=== PATIENT | male | born 1960 | race Two or more races ===

== ENCOUNTER 2018-11-20 17:20 | Inpatient (IN) | payer MEDICAID ==
[~2018-11-20] VITALS: Ht 152.4 cm; Wt 39.0 kg
[2018-11-20] MEDS ORDERED: ACET-73 PO (17:56)
[2018-11-20] MEDS ORDERED: AMMO385C4 TP (17:56)
[2018-11-20] MEDS ORDERED: TRAZ-182 PO (17:56)
[2018-11-20] MEDS ORDERED: CHOL200026 PO (17:56)
[2018-11-20] MEDS ORDERED: ACET1TAB23 PO (17:56)
[2018-11-20] MEDS ORDERED: ESCI5TAB PO (17:56)
[2018-11-20] MEDS ORDERED: LACT1CAP61 PO (17:56)
[2018-11-20] MEDS ORDERED: SILV20CR13 TP (17:56)
[2018-11-20 18:13] LABS: BASOPHILS # (AUTO) 0.1 /CMM (0.0-0.2); BASOPHILS % (AUTO) 0.9 % (0.0-2.0); EOSINOPHILS % (AUTO) 1.9 % (0.0-6.0); HEMATOCRIT 43 % (39-51); HEMOGLOBIN 14.3 g/dL (13.5-17.5); LYMPHOCYTES # (AUTO) 1.7 /CMM (0.8-4.8); LYMPHOCYTES % (AUTO) 26.1 % (20.0-44.0); MEAN CORPUSCULAR HGB CONC 34 g/dl (31.0-36.0); MEAN CORPUSCULAR VOLUME 83 fL (80-96); MONOCYTES # (AUTO) 0.6 /CMM (0.1-1.30); MONOCYTES % (AUTO) 8.7 % (2.0-12.0); NEUTROPHILS % (AUTO) 62.4 % (43.0-81.0); PLATELET COUNT (AUTO) 258 /CMM (150-450); RED BLOOD CELL COUNT(AUTO) 5.11 MIL/uL (4.5-6.0); WHITE BLOOD COUNT (AUTO) 6.4 K/uL (4.3-11.0)
--- NOTE | 2018-11-20 18:15 | NUR ---
patient NORA from snf, currently on PO ATB for UTI but patient is non-compliant on meds. Came in due to increase confusion and non compliant on meds. On room air, breathing evenly and unlabored. Denies any pain at this time. Kept comfortable, will continue to monitor accordingly.
[2018-11-20 18:19] LABS: CALCIUM, SERUM 8.8 mg/dL (8.5-10.1); CARBON DIOXIDE 25 mmol/L (21-32); CHLORIDE 105 mmol/L (98-107); CREATININE 0.6 mg/dL (0.6-1.3); GLUCOSE 92 mg/dL (74-106); POTASSIUM 3.8 mmol/L (3.5-5.1); SODIUM SERUM 140 mmol/L (136-145); UREA NITROGEN, BLOOD 19 mg/dL (7-18)
[2018-11-20 18:25] LABS: ALANINE AMINOTRANSFERASE 20 U/L (12-78); ALCOHOL, BLOOD < 3 mg/dL (0-0); ALKALINE PHOSPHATASE 101 U/L (46-116); ASPARTATE AMINOTRANSFERASE 21 U/L (15-37); BILIRUBIN,DIRECT 0.1 mg/dL (0.0-0.2); BILIRUBIN,TOTAL 0.4 mg/dL (0.2-1.0); SALICYLATE < 2.8 mg/dL (2.8-20.0); TOTAL PROTEIN, SERUM 7.8 g/dL (6.4-8.2)
[2018-11-20 18:30] LABS: BILIRUBIN,URINE Negative (NEGATIVE); BLOOD, URINE Negative Ery/uL (NEGATIVE); COLOR,URINE Yellow (YELLOW); KETONES,URINE 15 (NEGATIVE); LEUKOCYTE ESTERASE ,URINE Negative (NEGATIVE); NITRITE, URINE Positive (NEGATIVE); PROTEIN,URINE 30 mg/dl (NEGATIVE); UGLUCOSE Negative (NEGATIVE)
[2018-11-20 18:31] LABS: PH,URINE >9.0 (5.0-8.0)
[2018-11-20 18:42] LABS: APPEARANCE,URINE HAZY (CLEAR); BACTERIA,URINE Few /HPF (None Seen); RBC,URINE 0-2 /HPF (0-2); SQUAMOUS EPITHELIAL CELL,UR None Seen /HPF (None Seen); URINE AMORPHOUS PHOSPHATES Moderate /HPF (None Seen); WBC,URINE 0-2 /HPF (0-3)
--- NOTE | 2018-11-20 19:20 | NUR ---
endorsed to nurse SAVAGE for cesar.
--- NOTE | 2018-11-20 19:22 | NUR ---
REPORT REC'D FROM KAN CANTU FOR JEANIE.
--- NOTE | 2018-11-20 19:59 | NUR ---
CALLED [facility] FOR BED
--- NOTE | 2018-11-20 20:00 | NUR ---
PT HAS LARGE WOUND ON SACRAL AREA.
--- NOTE | 2018-11-20 20:00 | NUR ---
PT HAS A COLOSTOMY AND A CONDOM CATH RANDALL.
--- NOTE | 2018-11-20 20:01 | NUR ---
PT WAS CLEANED AND PT WAS ASSISTED WITH PUTTING ON A LEG BAG. PT WAS GIVEN NEW PANTS AND CLEAN SHEETS. PT'S LEG BAG LEAKED.
--- NOTE | 2018-11-20 20:15 | NUR ---
PT'S BROTHER, DANIEL COLEMAN, CALLED FOR AN UPDATE. DANIEL CAN BE REACHED AT
--- NOTE | 2018-11-20 20:57 | NUR ---
PT IS GOING TO 306-2
[2018-11-20] MEDS ORDERED: TRAZODONE 50 MG TABLET PO PRN (21:00)
--- NOTE | 2018-11-20 21:06 | NUR ---
CALLING REPORT TO MS NURSE.
--- NOTE | 2018-11-20 21:06 | NUR ---
PT IS GOING TO 310-1, PER VIDYA HARMON.
--- NOTE | 2018-11-20 21:07 | NUR ---
CALLING REPORT TO KAN GREEN.
--- NOTE | 2018-11-20 21:22 | NUR ---
MS/RN NOTES RECEIVED PT. FROM ER VIA LEANNA. PT. IS AWAKE, ALERT AND ORIENTED X2-3. KAZAKH SPEAKING. BREATHING EVEN AND UNLABORED ON ROOM AIR. NO SOB, RESPIRATORY DISTRESS OR COMPLAINTS OF PAIN NOTED AT THIS TIME. ORIENTED PT. TO ROOM. PT. WITH CONDOM CATHETER PRESENT, PATENT AND INTACT DRAINING CLOUDY YELLOW URINE. PT. WITH COLOSTOMY PRESENT AND INTACT. BED LOCKED AND IN LOWEST POSITION, SIDE RAILS UP X3, BED ALARM ON, CALL LIGHT WITHIN REACH, WILL CONTINUE TO MONITOR.
[2018-11-20] MEDS ORDERED: HYDROCODONE/APAP 5/325MG 1 EACH TABLET PO PRN (21:30)
[2018-11-20] MEDS ORDERED: Z GUARD REMEDY 2 OZ OINT TP PRN (21:30)
[2018-11-20] MEDS ORDERED: MAG HYDROX/AL HYDROX/SIMETH 30 ML UDC PO PRN (21:30)
[2018-11-20] MEDS ORDERED: DIPHENOXYLATE HCL/ATROP SULF 1 UDTAB TABLET PO PRN (21:30)
[2018-11-20] MEDS ORDERED: ONDANSETRON HCL/PF 4 MG/2 ML VIAL IVP PRN (21:30)
[2018-11-20] MEDS ORDERED: ZOLPIDEM TARTRATE 5 MG TABLET PO PRN (21:30)
[2018-11-20] MEDS ORDERED: MORPHINE SULFATE INJ 2 MG/ML DISP.SYRIN IV PRN (21:30)
[2018-11-20] MEDS ORDERED: ACETAMINOPHEN 325 MG TABLET PO PRN (21:30)
[2018-11-20] MEDS ORDERED: MAGNESIUM HYDROXIDE 30 ML UDC PO PRN (21:30)
[2018-11-20 21:40] VITALS: BP 140/83
[2018-11-20] MEDS ORDERED: CEFTRIAXONE 1 G VIAL ONE (23:19)
[2018-11-20] MEDS: CEFTRIAXONE 1 G in IV D5W 50 ML IV SCH (23:33)
[2018-11-20] MEDS: IV NS 0.9% 1,000 ML IV PRN (23:34)
[2018-11-20] MEDS: ENOXAPARIN SODIUM 40 MG/0.4 ML DISP.SYRIN SQ SCH (23:35)
--- NOTE | 2018-11-21 06:52 | NUR ---
MS/RN NOTES PT. IS LYING IN BED, AWAKE, ALERT AND ORIENTED X 2-3. BREATHING EVEN AND UNLABORED ON ROOM AIR. NO SOB, RESPIRATORY DISTRESS OR COMPLAINTS OF PAIN NOTED AT THIS TIME. PT. WITH RIGHT FOREARM 22 GAUGE PERIPHERAL IV PRESENT, PATENT AND INTACT ADMINISTERING TO PT. NS @ 75 ML/HR. PT. WITH CONDOM CATHETER PRESENT, PATENT AND INTACT DRAINING CLOUDY YELLOW URINE. PT. WITH COLOSTOMY PRESENT AND INTACT. ALL PT. NEEDS MET. PT. OFFLOADED AND ENCOURAGED/ASSISTED TO TURN AND REPOSITION Q2H AND NEEDED. BED LOCKED AND IN LOWEST POSITION, SIDE RAILS UP X3, BED ALARM ON, CALL LIGHT WITHIN REACH, WILL ENDORSE TO DAYSWAFT NURSE FOR CONTINUITY OF CARE.
[2018-11-21 06:57] LABS: BASOPHILS # (AUTO) 0.1 /CMM (0.0-0.2); BASOPHILS % (AUTO) 1.2 % (0.0-2.0); EOSINOPHILS % (AUTO) 2.9 % (0.0-6.0); HEMATOCRIT 42 % (39-51); HEMOGLOBIN 13.8 g/dL (13.5-17.5); LYMPHOCYTES # (AUTO) 1.2 /CMM (0.8-4.8); LYMPHOCYTES % (AUTO) 22.9 % (20.0-44.0); MEAN CORPUSCULAR HGB CONC 33 g/dl (31.0-36.0); MEAN CORPUSCULAR VOLUME 84 fL (80-96); MONOCYTES # (AUTO) 0.4 /CMM (0.1-1.30); NEUTROPHILS # (AUTO) 3.5 /CMM (1.8-8.9); PLATELET COUNT (AUTO) 226 /CMM (150-450); WHITE BLOOD COUNT (AUTO) 5.4 K/uL (4.3-11.0)
[2018-11-21 07:23] LABS: ALBUMIN 2.7 g/dL (3.4-5.0); BILIRUBIN,TOTAL 0.3 mg/dL (0.2-1.0); CALCIUM, SERUM 8.5 mg/dL (8.5-10.1); CREATININE 0.5 mg/dL (0.6-1.3); PHOSPHORUS 3.5 mg/dL (2.5-4.9); POTASSIUM 3.5 mmol/L (3.5-5.1); TOTAL PROTEIN, SERUM 7.1 g/dL (6.4-8.2)
--- NOTE | 2018-11-21 07:30 | NUR ---
m/s after school tutor: initial assessment received pt in bed awake, a/ox2-3; french speaking only. pt asked for egg salad sandwich. informed pt breakfast tray is on the way. no c/o pain or any discomfort. pt has colostomy and condom cath. instructed to call for assistance. will continue to monitor.
[2018-11-21 08:00] VITALS: BP 127/72
--- NOTE | 2018-11-21 08:00 | NUR ---
m/s controls technician: md visit seen and examined by dr. mckenna with new orders. orders acknowledged. for d'c planning in 1-2 days, pt verbalized understanding.
[2018-11-21] MEDS: PANTOPRAZOLE 40 MG TABLET.DR PO SCH (08:28)
[2018-11-21] MEDS: ACIDOPHILUS/BULGARICUS 1 EACH TAB.CHEW PO SCH ×2 (08:28→16:33)
[2018-11-21] MEDS: CHOLECALCIFEROL 1,000 UNIT TABLET (VIT D3) PO SCH (08:28)
[2018-11-21] MEDS: ESCITALOPRAM OXALATE (10 MG) 10 MG TABLET PO SCH (08:28)
[2018-11-21] MEDS: AMMONIUM LACTATE 227 GM BOTTLE TP SCH (09:00)
--- NOTE | 2018-11-21 09:00 | NUR ---
m/s oil well engineer: notes lac-hydrin cream not available at this time, f/u made to pharmacist, spoke to blu.
--- NOTE | 2018-11-21 09:30 | NUR ---
m/s chip washer: notes request for egg salad sandwich once more and provided. instructed to call for assistance. will continue to monitor.
--- NOTE | 2018-11-21 10:25 | NUR ---
WOUND CARE CONSULT: PT PRESENTS WITH SCARRING TO RT BUTTOCK AND SACRUM WITH STAGE 3 ULCER TO LEFT BUTTOCK, PRESENT ON ADMISSION. RECOMMEND SURGICAL CONSULT. DR BIRMINGHAM NOTIFIED OF CONSULT REQUEST. RECOMMENDATIONS MADE FOR SKIN PROTECTION. DISCUSSED WITH NURSING STAFF. LOW AIRLOSS BED TO BE PLACED (ISOFLEX). WILL SEE PRN. CURRENT HUNTER SCORE IS 13. MD IN AGREEMENT WITH PLAN OF CARE. Addendum: 11/21/18 at 1026 by ADAM WHALEN WNDNU Amended: Links added.
--- NOTE | 2018-11-21 12:00 | NUR ---
m/s basket hand weaver: psych consult seen by dr. mcdowell at this time. for possible d'c planning to geropsych unit when pt is medically stable.
--- NOTE | 2018-11-21 13:00 | NUR ---
m/s care management coordinator: notes dr. mcdowell (psychiatrist) called and informed me that pt [facility] not [facility], but instead will look for placement per intake as stated by dr. mcdowell.
--- NOTE | 2018-11-21 13:30 | NUR ---
m/s parachutist/combatant diver qualified: notes nephew visiting at this time.
--- NOTE | 2018-11-21 15:00 | NUR ---
m/s street light repairer: notes pt called his brother and handed the phone to the staff. brother upset about him calling him often and says pt is very delusional when he is on the phone with him. pt denies any auditory/visual hallucinations at this time. denies si/hi at this time. brother to come at 1700 as stated. will continue to monitor.
[2018-11-21 16:00] VITALS: BP 132/77
[2018-11-21] MEDS: IV NS 0.9% 1,000 ML IV PRN (16:01)
--- NOTE | 2018-11-21 16:55 | NUR ---
m/s manganese heater: plastic surgeon consult seen and examined by dr. josue at this time.
--- NOTE | 2018-11-21 18:00 | NUR ---
m/s transmission system operator: notes sally (brother) here visiting and concerns about his delusional state when he is at home, pt keeps calling other families outside [place] and keeps bothering them as stated. brother refused to talk to staff privately and wants his brother to hear all his and family's concerns. informed him that psychiatrist is on board and pt has no delusional or hallucinations on shift, stated, "he looks good now, but what about when he gets home, they are just going to send him back to the hospital." all concerns and questions answered. pt denies any si/hi and denies auditory/visual hallucinations at this time. encouraged to verbalized feelings. brother wants to talk to the doctor and psychiatrist so he can verbalized he and his family's concerns before he gets discharge, as of now he looks great but that's another story as stated. will continue to monitor and will endorsed accordingly.
--- NOTE | 2018-11-21 19:23 | NUR ---
MS/RN OPENING NOTES RECEIVED PATIENT IN BED WITH BROTHER, AWAKE, ALERT, PARAPHLEGIC, ABLE TO VERBALIZE NEEDS IN [place] CAN UNDERSTAND LITTLE ENFLISH, DISCUSSED PLAN OF CARE AND REPORTED WITH LITTLE APPETITE, OFFERED SOME JELLO, ABLE TO EAT FEW BITES, SKIN WARM TO TOUCH, RESPIRATIONS EVEN AND UNLABORED, CAN TURN WITH ASSISTANCE, REQUIRE ASSISTANCE M WITH COLOSTOMY AND CONDOM CATHETER DRAINING YELLOW COLOR URINE. WILL MONITOR. BED LOCKED, CALL LIGHTS WITHIN REACH, WILL MONITOR.REQUIRE SKIN TREATMENT ON SACRAL AREA.
[2018-11-21 20:00] VITALS: BP 144/76
[2018-11-21] MEDS: ENOXAPARIN SODIUM 40 MG/0.4 ML DISP.SYRIN SQ SCH (20:06)
[2018-11-21] MEDS: CEFTRIAXONE 1 G in IV D5W 50 ML IV SCH (20:06)
--- NOTE | 2018-11-21 21:40 | NUR ---
MS/RN NOTES PATIENT EXHIBITING AGGRESSIVE BEHAVIOR M BEHAVIOR CHANGE, AWAKEN FRO SLEEP AND WITH AGITATION AND SHOUTING, ATTEMPT AND MAKING A FIST, AND HOLDING BED ALRM . MD PAEZ MADE AWARE AND ORDER FOR A SITTER , OTHERQISE RESTRAINT FOR SAFETY, WILL MONITOR.
--- NOTE | 2018-11-21 21:59 | NUR ---
MS/RN NOTES PATIENT SHOUTING, AGGRESIVE, FOUL LANGUAGE, BROTHER DANIEL WAS CONTACTED AND SPOKE WITH HIM REGARDING PATIENT CHANGE OF BEHAVIOR EXHIBITING DANGER TO SELF AND OTHERS REQUIRE PSYCH CONSULT, AWAITING .
--- NOTE | 2018-11-21 22:11 | NUR ---
MS/RN NOTES PATIENT ONGOING BEHAVIOR OF ACUTE EPISODE, VERBALLY ABUSIVE, FOUL LANGUAGE.MONITORED.
--- NOTE | 2018-11-21 22:17 | NUR ---
REFUSED CARE OF WOUND TREATMENT AT THIS TIME, UNABLE TO PROVIDE CARE PATIENT COMBATIVE, REQUIRE MONITORING PER MD.
--- NOTE | 2018-11-22 06:21 | NUR ---
310-1 MS/RN NOTES MONITORED FOR SAFETY, ACUTE CHANGE OF BEHAVIOR WHEN AWOKEN FROM SLEEP, ON RESTRAINTSOFT DUE TO COMBATIVE/AGGRESSIVE AWAITING FOR PSYCH CONSULT AND ORDER, EXHIBITING ACUTE BEHAVIOR
[2018-11-22] MEDS: PANTOPRAZOLE 40 MG TABLET.DR PO SCH (07:30)
--- NOTE | 2018-11-22 07:39 | NUR ---
RN OPENING NOTE PT WAS RECEIVED IN BED AT LOWEST AND LOCKED POSITION WITH SIDE RAILS UP X2, A/O X2-3 TELUGU SPEAKING COMBATIVE AND NON-COMPLIANT, BREATHING EVEN AND UNLABORED ON RA, NO S/S OF ANY PAIN OR DISTRESS AT THIS TIME, IV IS PATENT AND INTACT, SITTER PRESENT AT BEDSIDE, CONDOM CATH IN PLACE, NOTED TO HAVE COLOSTOMY BAG, SAFETY PRECAUTIONS IN PLACE, CALL LIGHT WITHIN REACH, WILL MONITOR PT ACCORDINGLY.
[2018-11-22] MEDS: HYDROGEL DRESSING 90 GM TUBE TP SCH (08:49)
[2018-11-22] MEDS: ACIDOPHILUS/BULGARICUS 1 EACH TAB.CHEW PO SCH ×2 (08:52→16:48)
[2018-11-22] MEDS: ESCITALOPRAM OXALATE (10 MG) 10 MG TABLET PO SCH (08:52)
[2018-11-22] MEDS: CHOLECALCIFEROL 1,000 UNIT TABLET (VIT D3) PO SCH (08:53)
[2018-11-22] MEDS: Z GUARD REMEDY 2 OZ OINT TP SCH (08:53)
[2018-11-22] MEDS: AMMONIUM LACTATE 227 GM BOTTLE TP SCH (08:53)
--- NOTE | 2018-11-22 08:54 | NUR ---
RN NOTE ATTEMPTED TO ADMIN PATIENT AM PO MEDICATIONS BUT PT REFUSED MEDS STATING IT GIVES HIM DIARRHEA. HE WAS INFORMED AND EDUCATED ABOUT THEIR PURPOSE AND THAT THEY WOULD NOT GIVE HIM DIARRHEA. HE HOWEVER STILL REFUSED AND DID NOT WANT TO TAKE THEM.
--- NOTE | 2018-11-22 13:42 | NUR ---
RN NOTE VERBAL ORDER RECEIVED FROM DR. HENDRIX TO GIVE DEPACON TID 125 MG IV. WILL IMPLEMENT ORDER AND MONITOR ACCORDINGLY.
[2018-11-22] MEDS: NS 0.9% IV SCH (17:47)
[2018-11-22] MEDS: VALPROATE IV SCH (17:47)
--- NOTE | 2018-11-22 18:05 | NUR ---
RN NOTE RFA IV WAS REMOVED DUE TO INFILTRATION, NEW ONE PLACE IN ART GAUGE 22 AT THIS TIME
--- NOTE | 2018-11-22 18:40 | NUR ---
RN CLOSING NOTE PT IN BED AT LOWEST AND LOCKED POSITION WITH SIDE RAILS UP X2, A/O X2-3 PUERTO RICAN SPEAKING BREATHING EVEN AND UNLABORED ON RA WITH NO S/S OF ANY PAIN OR DISTRESS AT THIS TIME, IV IS PATENT AND INTACT WITH DEPACON CURRENTLY INFUSING, SITTER PRESENT AT BEDSIDE, CONDOM CATH IN PLACE, COLOSTOMY BAG IN PLACE, SAFETY PRECAUTIONS IN PLACE, CALL LIGHT WITHIN REACH, ALL NEEDS ATTENDED TO, WILL ENDORSE TO ONCOMING NET SOFTWARE DEVELOPER RN FOR JEANIE.
--- NOTE | 2018-11-22 19:54 | NUR ---
MS/RN OPENING NOTES RECEIVED PATIENT IN BED, AWAKE, ALERT XQ, WITH BEHAVIOR PRESSER AND SHAPER KNITTED GOODS REQUIRE SAFETY MONITORING WITH PSYCH MEDICATION GIVEN TODAY PER CONSULT, WILL MONITOR BEHAVIOR. REQUIRE SITTER, OFFERED FLUIDS. KEPT SKIN WARM AND INTACT, REQUIRE REPOSITIONING AND SKIN TREATMENT.
[2018-11-22 20:00] VITALS: BP 147/98
[2018-11-22] MEDS: ENOXAPARIN SODIUM 40 MG/0.4 ML DISP.SYRIN SQ SCH (21:07)
[2018-11-22] MEDS: CEFTRIAXONE 1 G in IV D5W 50 ML IV SCH (21:09)
[2018-11-23] MEDS: IV NS 0.9% 1,000 ML IV PRN ×2 (02:31→22:45)
--- NOTE | 2018-11-23 06:06 | NUR ---
MS/RN NOTES PATIENT ABLE TO PARTICIPATE WITH MORNING CARE, ASSITED FOR COMFORT.
--- NOTE | 2018-11-23 07:15 | NUR ---
RN OPENING NOTE PT WAS RECEIVED IN BED AT LOWEST AND LOCKED POSITION WITH SIDE RAILS UP X2, A/O X2-3 KYRGYZ SPEAKING, BREATHING EVEN AND UNLABORED ON RA, NO S/S OF ANY PAIN OR DISTRESS AT THIS TIME, IV IS PATENT AND INTACT, CONDOM CATH IN PLACE, NOTED TO HAVE COLOSTOMY BAG, INFORMED BY SALT REFINER RN THAT PATIENT WAS COOPERATIVE AND DID EAT 2 SANDWICHES, SAFETY PRECAUTIONS IN PLACE, CALL LIGHT WITHIN REACH, WILL MONITOR PT ACCORDINGLY.
[2018-11-23] MEDS: PANTOPRAZOLE 40 MG TABLET.DR PO SCH (07:30)
[2018-11-23 08:00] VITALS: BP 129/78
[2018-11-23] MEDS: ACIDOPHILUS/BULGARICUS 1 EACH TAB.CHEW PO SCH ×2 (08:13→17:00)
[2018-11-23] MEDS: ESCITALOPRAM OXALATE (10 MG) 10 MG TABLET PO SCH (08:13)
[2018-11-23] MEDS: CHOLECALCIFEROL 1,000 UNIT TABLET (VIT D3) PO SCH (08:14)
[2018-11-23] MEDS: AMMONIUM LACTATE 227 GM BOTTLE TP SCH (08:15)
[2018-11-23] MEDS: Z GUARD REMEDY 2 OZ OINT TP SCH (08:16)
--- NOTE | 2018-11-23 08:20 | NUR ---
RN NOTE PT REFUSED AM PO MEDICATIONS AT THIS TIME, INFORMED AND EDUCATED AGAIN TO WHY HE SHOULD TAKE THEM BUT HE STILL REFUSED. HE HOWEVER DID EAT ALL OF HIS BREAKFAST. WILL MONITOR PT ACCORDINGLY. Addendum: 11/23/18 at 1447 by FRANCIS JOSE RN DISREGARD THIS NOTE
--- NOTE | 2018-11-23 08:47 | NUR ---
RN NOTE PT REFUSED AM MEDS AND LAB DRAW STATING HE WANTED THEM DONE LATER AND THAT IT WOULD GIVE HIM DIARRHEA. HE WAS EDUCATED THAT THE MEDS WOUND NOT GIVEN HIM DIARRHEA AND THE PURPOSE OF THE LAB DRAW BUT HE STILL REFUSED. WILL MONITOR PT ACCORDINGLY.
[2018-11-23] MEDS: VALPROATE IV SCH ×2 (09:36→12:51)
[2018-11-23] MEDS: HYDROGEL DRESSING 90 GM TUBE TP SCH (09:36)
[2018-11-23] MEDS: NS 0.9% IV SCH ×2 (09:36→12:51)
--- NOTE | 2018-11-23 10:25 | NUR ---
Social Work Note and Screening for Inpatient Psychiatric Unit Pt. was seen in his room where Antonio OMER translated into Welsh. Pt. has cognitive impairment and is focussed on his colostomy and feels he cannot eat as a result of this. He also thinks eating causes diarrhea. He admits to feeling depressed but denies suicidality. He is on 5mg Lexapro. Will ask Dr Leung to evaluate medication for depression. Pt. weighs 82 lbs and appears emaciated. He is not meeting criteria for our inpatient unit as he is refusing to eat and has a colostomy and condom catheter. Pt. may benefit from an appetite stimulant. He did not seem to understand or accept that his lack of intake could be exacerbating his depression. Pt. is oriented to year and person. He is guarded with this clinician so full history and thorough mental status exam is not possible. Pt. states he has been at [facility] ( it is unclear if it was on the psychiatric unit or medical floor there). Pt. has an accepting SNF and so is not gravely disabled. He may need alternative forms of nutrition if he continues to refuse food and if he remains anorexic. Suggest dietary consult. Since we are not admitting to our [facility] unit, pt. should return to [facility]. who are willing to take him back. Psychiatry need to follow him.
--- NOTE | 2018-11-23 15:39 | NUR ---
RN NOTE LAB DRAW WAS ATTEMPTED AGAIN AT THIS TIME BUT PT STILL REFUSED. REORIENTED AND EDUCATED ABOUT PURPOSE OF LAB MULTIPLE TIMES BUT PT STILL REFUSED. WILL MONITOR PT ACCORDINGLY
[2018-11-23 16:00] VITALS: BP 142/60
[2018-11-23] MEDS: risperiDONE-M 0.5 MG TAB.RAPDIS PO SCH (16:41)
--- NOTE | 2018-11-23 17:30 | NUR ---
RN NOTE PT WAS ABLE TO TAKE TWO OF THE PO MEDICATIONS SCHEDULED FOR THIS TIME BUT HE REFUSED LACTINEX. WILL MONITOR PT ACCORDINGLY
[2018-11-23] MEDS: BENZTROPINE MESYLATE (1 MG) 1 MG TABLET PO SCH (17:45)
[2018-11-23] MEDS: ENSURE ENLIVE 237 ML LIQUID (VANILLA) PO SCH (17:47)
[2018-11-23] MEDS: VALPROATE 250 MG in IV NS 0.9% 100 ML IV SCH (18:05)
--- NOTE | 2018-11-23 18:21 | NUR ---
RN CLOSING NOTE PT IN BED AT LOWEST AND LOCKED POSITION WITH SIDE RAILS UP X2, A/O X2-3 GUINEAN SPEAKING, BREATHING EVEN AND UNLABORED ON RA WITH NO S/S OF ANY PAIN OR DISTRESS AT THIS TIME, IV IS PATENT AND INTACT, CONDOM CATH AND COLOSTOMY BAG IN PLACE, PT HAS EATEN 2 SANDWICHES WITH COFFEE AND WAS SOMEWHAT COOPERATIVE WHEN AFTERNOON PO MEDS WERE GIVEN, SAFETY PRECAUTIONS IN PLACE, CALL LIGHT WITHIN REACH, ALL NEEDS ATTENDED TO, WILL ENDORSE TO BRADLEY LINEBACKER CREWMEMBER RN FOR JEANIE.
--- NOTE | 2018-11-23 19:56 | NUR ---
RN OPENING NOTES RECEIVED PATIENT AWAKE, RESTING COMFORTABLY IN BED. PATIENT IS A/O X2 WOLOF SPEAKING. NO SIGNS OF RESPIRATORY DISTRESS. NO S/S OF SOB OR PAIN AT THIS TIME. IV SITE IS PATENT AND INTACT. SAFETY PRECAUTIONS IMPLEMENTED. CALL LIGHT WITHIN REACH. WILL CONTINUE TO MONITOR PATIENT THROUGHOUT THE SHIFT.
[2018-11-23 20:00] VITALS: BP 118/54
[2018-11-23] MEDS: ENOXAPARIN SODIUM 40 MG/0.4 ML DISP.SYRIN SQ SCH (21:22)
--- NOTE | 2018-11-24 06:48 | NUR ---
RN CLOSING NOTES PATIENT WAS ASLEEP FOR MOST OF SHIFT. NO COMPLAINTS WERE MADE. AFEBRILE THE WHOLE SHIFT. NO SIGNS OF RESPIRATORY DISTRESS. NO S/S OF SOB OR PAIN AT THIS TIME. IV SITE INTACT AND PATENT, CONDOM AND COLOSTOMY BAG IN PLACE. PATIENT WAS MOSTLY COOPERATIVE WHEN MEDICATION WAS GIVEN. ALL MEDICATION WAS GIVEN ORDERED. PATIENT TURNED Q2H, EXTREMITIES OFFLOADED. ALL NEEDS ATTENDED TO. SAFETY PRECAUTIONS IMPLEMENTED. CALL LIGHT WITHIN REACH. WILL ENDORSE TO AM SHIFT FOR CONTINUITY OF CARE.
[2018-11-24] MEDS: PANTOPRAZOLE 40 MG TABLET.DR PO SCH ×2 (07:30→08:37)
--- NOTE | 2018-11-24 07:37 | NUR ---
MS/RN OPENING NOTE PATIENT IN BED IN STABLE CONDITION. A/O X 2. NO SIGNS OF ACUTE DISTRESS. NO COMPLAIN OF PAIN OR DISCOMFORT. 1:1 SITTER AT BEDSIDE. ALL NEEDS ATTENDED TO. CALL LIGHT WITHIN REACH. WILL CONTINUE TO MONITOR TO ENSURE SAFETY.
[2018-11-24 08:00] VITALS: BP 107/68
[2018-11-24] MEDS: ACIDOPHILUS/BULGARICUS 1 EACH TAB.CHEW PO SCH ×3 (08:37→16:33)
[2018-11-24] MEDS: CHOLECALCIFEROL 1,000 UNIT TABLET (VIT D3) PO SCH ×2 (08:37→09:00)
[2018-11-24] MEDS: VALPROATE 250 MG in IV NS 0.9% 100 ML IV SCH (08:37)
[2018-11-24] MEDS: risperiDONE-M 0.5 MG TAB.RAPDIS PO SCH ×3 (08:37→16:33)
[2018-11-24] MEDS: BENZTROPINE MESYLATE (1 MG) 1 MG TABLET PO SCH ×3 (08:37→16:32)
[2018-11-24] MEDS: HYDROGEL DRESSING 90 GM TUBE TP SCH (08:41)
[2018-11-24] MEDS: AMMONIUM LACTATE 227 GM BOTTLE TP SCH (08:41)
[2018-11-24] MEDS: Z GUARD REMEDY 2 OZ OINT TP SCH (08:42)
[2018-11-24] MEDS: ENSURE ENLIVE 237 ML LIQUID (VANILLA) PO SCH ×2 (08:42→16:32)
[2018-11-24 08:44] VITALS: BP 107/68
--- NOTE | 2018-11-24 09:48 | NUR ---
MS/DENTAL TECHNICIAN MEDICAL RESTRAINTS DC SECONDARY TO PATIENT HAVE 1:1 SITTER ORDER. 1:1 SITTER AT BEDSIDE. NO SIGNS OF ACUTE DISTRESS, OR C/O PAIN OR DISCOMFORT. WILL CONTINUE TO MONITOR TO ENSURE SAFETY.
--- NOTE | 2018-11-24 10:28 | NUR ---
MS/RN PATIENT REFUSED ALL PO MEDS OFFERED X 3 WITH RISKS AND BENEFITS EXPLAINED, CONTINUE TO REFUSED. MD NOTIFIED.
[2018-11-24] MEDS ORDERED: risperiDONE-M 0.5 MG TAB.RAPDIS PO SCH (13:00)
--- NOTE | 2018-11-24 13:15 | NUR ---
MS/RN SEEN BY DR HENDRIX WITH ORDERS TO DC RISPERIDONE 0.5MG TID AND START RISPERIDONE 1MG PO BID. ORDERS NOTED AND CARRIED OUT. PATIENT AWARE.
[2018-11-24 16:00] VITALS: BP 123/77
[2018-11-24] MEDS: DIVALPROEX SODIUM 250 MG TABLET.DR PO SCH (16:33)
[2018-11-24] MEDS: IV NS 0.9% 1,000 ML IV PRN (17:44)
--- NOTE | 2018-11-24 18:10 | NUR ---
MS/RN REPORT GIVEN TO KAN LEIVA FOR JEANIE. PATIENT TRANSFERRED TO ROOM 208-1 IN STABLE CONDITION.
--- NOTE | 2018-11-24 18:30 | NUR ---
MS MODEL AND PATTERN SUPERVISOR NOTES RECEIVED PT FROM 3 WEST IN BED AT LOWEST AND LOCKED POSITION WITH SIDE RAILS UP X2, A/O X2-3 ARMENIAN SPEAKING, BREATHING EVEN AND UNLABORED ON RA, DENIES PAIN OR DISTRESS AT THIS TIME, IV IS PATENT AND INTACT, CONDOM CATH IN PLACE, WITH COLOSTOMY BAG, WITH 1:1 SITTER AT BEDSIDE.SAFETY PRECAUTIONS IN PLACE, CALL LIGHT WITHIN REACH, WILL MONITOR PT ACCORDINGLY.ENDORSED TO STEAM FRAME OPERATOR RN CARE.
--- NOTE | 2018-11-24 19:30 | NUR ---
RN INITIAL NOTES: RECEIVED REPORT FROM [place]. PT TRANSFERRED FROM [facility] [place], SITTER AT BED SIDE. PT A/O X2 CONFUSED, TRYING TO LEAVE THE HOSPITAL. REORIENTED PT TO REALITY. DISCUSSED PLAN OF CARE. PT HAS IV ACCESS PATENT AND FLUSHING WELL, ON HL. COLOSTOMY IN PLACED. NEW BAG PROVIDED. SAFETY PRECAUTIONS FOR FALL INITIATED, CALL LIGHT IN REACH, WILL CONTINUE MONITORING PT.
[2018-11-24 19:40] VITALS: BP 124/74
[2018-11-24 20:00] VITALS: BP 124/74
[2018-11-24] MEDS: ENOXAPARIN SODIUM 40 MG/0.4 ML DISP.SYRIN SQ SCH (21:25)
--- NOTE | 2018-11-24 23:46 | NUR ---
INFORMATION SENT: FACESHEET , ADMIT ORDER , 24 HOURS REPORTS , JOSHUA TEAM REPORT , DISCHARGE SUMMARY , ER , H&P , [facility] , PROGRESS NOTES 11/22- , UR 11/23 INSURANCE NAME: [employer] [facility] Pauer - [facility] FAX NUMBER: [phone] and [phone] FAX SENT BY HERB RANDALL
--- NOTE | 2018-11-25 06:06 | NUR ---
rn notes: pt refused ivf, and refused bed bath, agree for wound care, all communication translated by home health rn stateless speaker, education provided to the pt
--- NOTE | 2018-11-25 06:52 | NUR ---
rn closing notes: pt very confused a/o x2 insisting to leave, tried to explain multiple times, he will be leaving today, just waiting for placement acceptance. iv access remains patent and flushing well, on hl. sitter at bed side. colostomy bag remains in placed, condom cath remains in placed. vs remains stable, needs attended. possible dc today, exit care filled out with necessary information, for day shift to edit when final placement is obtained and latest vs. safety precautions for fall remains engaged, call light in reach, will endorse to day rn for continuity of care.
--- NOTE | 2018-11-25 07:04 | NUR ---
RN OPENING NOTE PT WAS RECEIVED IN BED AT LOWEST AND LOCKED POSITION WITH SIDE RAILS UP X2, A/O X2-3 INDONESIAN SPEAKING, BREATHING EVEN AND UNLABORED ON RA, NO S/S OF ANY PAIN OR DISTRESS AT THIS TIME, IV IS PATENT AND INTACT, CONDOM CATH IN PLACE, COLOSTOMY BAG IN PLACE, SITTER PRESENT AT BEDSIDE, SAFETY PRECAUTIONS IN PLACE, CALL LIGHT WITHIN REACH, WILL MONITOR PT ACCORDINGLY.
[2018-11-25] MEDS: PANTOPRAZOLE 40 MG TABLET.DR PO SCH (07:30)
[2018-11-25 07:38] VITALS: BP 141/85
[2018-11-25] MEDS: HYDROGEL DRESSING 90 GM TUBE TP SCH (08:38)
[2018-11-25] MEDS: ENSURE ENLIVE 237 ML LIQUID (VANILLA) PO SCH ×2 (08:38→16:08)
[2018-11-25] MEDS: Z GUARD REMEDY 2 OZ OINT TP SCH (08:39)
[2018-11-25] MEDS: AMMONIUM LACTATE 227 GM BOTTLE TP SCH (08:39)
--- NOTE | 2018-11-25 08:42 | NUR ---
RN NOTE PT WAS REORIENTED AND EDUCATED ABOUT HIS MORNING MEDICATIONS BUT HE REFUSED, MULTIPLE ATTEMPTS WERE TRIED TO CONVINCE TO TAKE HIS MEDICINE BUT HE REFUSED. INFORMED AND EDUCATED ABOUT THEIR PURPOSE. WILL MONITOR PT ACCORDINGLY.
[2018-11-25] MEDS: BENZTROPINE MESYLATE (1 MG) 1 MG TABLET PO SCH ×2 (08:44→16:06)
[2018-11-25] MEDS: DIVALPROEX SODIUM 250 MG TABLET.DR PO SCH (08:45)
[2018-11-25] MEDS: ACIDOPHILUS/BULGARICUS 1 EACH TAB.CHEW PO SCH ×2 (08:45→16:06)
[2018-11-25] MEDS: CHOLECALCIFEROL 1,000 UNIT TABLET (VIT D3) PO SCH (08:46)
[2018-11-25] MEDS: risperiDONE-M 0.5 MG TAB.RAPDIS PO SCH (08:46)
[2018-11-25] MEDS: VALPROATE 250 MG in IV D5W 100 ML IV SCH ×2 (14:10→21:02)
[2018-11-25] MEDS ORDERED: PALIPERIDONE PALMITATE IM ONE ×2 (15:00→15:30)
--- NOTE | 2018-11-25 15:38 | NUR ---
RN NOTE IM SHOT OF INVEGA SUSTENNA 78 MG (0.5ML) GIVEN AT THIS TIME. WILL MONITOR PT ACCORDINGLY
[2018-11-25 16:00] VITALS: BP 129/74
--- NOTE | 2018-11-25 18:13 | NUR ---
RN CLOSING NOTE PT IN BED AT LOWEST AND LOCKED POSITION WITH SIDE RAILS UP X2, AWAKE AND ALERT RESTING COMFORTABLY IN BED BREATHING EVEN AND UNLABORED ON RA WITH NO COMPLAINTS OF ANY DISTRESS OR PAIN AT THIS TIME, IV IS PATENT AND INTACT, GIVEN IM INVEGA SUSTENNA TODAY, COLOSTOMY AND CONDOM CATH IN PLACE, WOUND DRESSING DONE, ALL NEEDS ATTENDED TO, SAFETY PRECAUTIONS IN PLACE, CALL LIGHT WITHIN REACH, WILL ENDORSE PT TO ONCOMING RAPIER INSERTION LOOM FIXER RN.
--- NOTE | 2018-11-25 19:15 | NUR ---
RN INITIAL NOTES: RECEIVED REPORT FROM FRANCIS. SITTER AT BED SIDE. PT A/O X2 CONFUSED, TRYING TO LEAVE THE HOSPITAL. IV ACCESS PATENT AND FLUSHING WELL, ON HL. PT REFUSING IVF. COLOSTOMY IN PLACED. SAFETY PRECAUTIONS FOR FALL INITIATED, SIDE RAILS UPS X3 FOR SAFETY. CALL LIGHT IN REACH, WILL CONTINUE MONITORING PT.
[2018-11-25 20:00] VITALS: BP 134/71
--- NOTE | 2018-11-25 20:30 | NUR ---
rn notes: changed pt's colostomy bag
[2018-11-25] MEDS: ENOXAPARIN SODIUM 40 MG/0.4 ML DISP.SYRIN SQ SCH (21:02)
--- NOTE | 2018-11-25 21:30 | NUR ---
RN NOTES: PT TRYING TO REMOVE CONDOM CATHETER, EDUCATE PT REGARDING IMPORTANCE OF KEEPING CONDOM CATHETER ALSO PT HAS SACRAL WOUND/DTI AND IF URINE COMES IN CONTACT WITH THE WOUND , HIGH RISK FOR INFECTION AND WOUND WILL GET WORST. PT ALSO TRYING TO PUT URINE BAG INSIDE HIS PANTS. REORIENTATION PROVIDED TO THE PT. SITTER AT BED SIDE.
[2018-11-25] MEDS: IV NS 0.9% 1,000 ML IV PRN (22:02)
[2018-11-25 22:15] VITALS: BP 119/66
--- NOTE | 2018-11-25 22:19 | NUR ---
prn morphine: pt c/o head ache and pain around the eye area, no redness noted on the eye, does not seem to be irritated. ps 8/10, prn morphine 2mg ivp administered to the pt at this time. vs taken and recorded prior to administering medication. all communication translated by iggy rapp telugu speaking iggy
[2018-11-26] MEDS: VALPROATE 250 MG in IV D5W 100 ML IV SCH ×3 (04:09→20:22)
--- NOTE | 2018-11-26 05:04 | NUR ---
rn notes: ms 2 will be closed, pt transferred to room 327-2, all belongings and meds sent with the pt upon transfer
--- NOTE | 2018-11-26 06:35 | NUR ---
RN CLOSING NOTES: PT REMAINS A/O X2 CONFUSED, COLOSTOMY BAG IN PLACED, CHANGED YESTERDAY, CONDOM CATH REMAINS IN PLACED, BAG EMPTIED BY EXT JS DEVELOPER. IV ACCESS REMAINS PATENT AND FLUSHING WELL, INFUSING WITH NS AT 75ML/HR. SITTER AT BED SIDE. LABS TODAY. SAFETY PRECAUTIONS FOR FALL REMAINS ENGAGED, CALL LIGHT IN REACH, WILL ENDORSE TO DAY RN FOR CONTINUITY OF CARE.
--- NOTE | 2018-11-26 07:20 | NUR ---
RN OPENING NOTE RECEIVED PATIENT IN BED RESTING. A/O X2-3 YI SPEAKING, BREATHING EVEN AND UNLABORED ON RA, NO S/S OF ANY PAIN OR DISTRESS AT THIS TIME, IV IS PATENT AND INTACT, CONDOM CATH IN PLACE, COLOSTOMY BAG IN PLACE, SITTER PRESENT AT BEDSIDE, SAFETY PRECAUTIONS IN PLACE, BED IN LOW/LOCKED POSITION, SIDERAILS UP, CALL LIGHT WITHIN REACH, WILL MONITOR PT ACCORDINGLY.
[2018-11-26 08:04] LABS: BASOPHILS % (AUTO) 0.9 % (0.0-2.0); EOSINOPHILS % (AUTO) 4.9 % (0.0-6.0); HEMATOCRIT 37 % (39-51); HEMOGLOBIN 12.2 g/dL (13.5-17.5); LYMPHOCYTES # (AUTO) 0.8 /CMM (0.8-4.8); LYMPHOCYTES % (AUTO) 18.5 % (20.0-44.0); MEAN CORPUSCULAR HGB CONC 33 g/dl (31.0-36.0); MEAN CORPUSCULAR VOLUME 84 fL (80-96); MONOCYTES # (AUTO) 0.4 /CMM (0.1-1.30); MONOCYTES % (AUTO) 8.5 % (2.0-12.0); NEUTROPHILS % (AUTO) 67.2 % (43.0-81.0); PLATELET COUNT (AUTO) 183 /CMM (150-450); RED BLOOD CELL COUNT(AUTO) 4.39 MIL/uL (4.5-6.0); WHITE BLOOD COUNT (AUTO) 4.5 K/uL (4.3-11.0)
[2018-11-26 08:06] LABS: CALCIUM, SERUM 7.5 mg/dL (8.5-10.1); CREATININE 0.4 mg/dL (0.6-1.3); POTASSIUM 3.3 mmol/L (3.5-5.1)
[2018-11-26 08:09] VITALS: BP 104/59
[2018-11-26] MEDS: BENZTROPINE MESYLATE (1 MG) 1 MG TABLET PO SCH ×2 (09:18→17:33)
[2018-11-26] MEDS: CHOLECALCIFEROL 1,000 UNIT TABLET (VIT D3) PO SCH (09:18)
[2018-11-26] MEDS: ACIDOPHILUS/BULGARICUS 1 EACH TAB.CHEW PO SCH ×2 (09:18→17:33)
[2018-11-26] MEDS: PANTOPRAZOLE 40 MG TABLET.DR PO SCH (09:19)
[2018-11-26] MEDS: Z GUARD REMEDY 2 OZ OINT TP SCH (09:23)
[2018-11-26] MEDS: AMMONIUM LACTATE 227 GM BOTTLE TP SCH (09:26)
[2018-11-26] MEDS: HYDROGEL DRESSING 90 GM TUBE TP SCH (09:27)
[2018-11-26] MEDS: ENSURE ENLIVE 237 ML LIQUID (VANILLA) PO SCH ×2 (09:27→17:00)
[2018-11-26] MEDS ORDERED: POTASSIUM CHLORIDE 20 MEQ TAB.PRT.SR PO SCH (09:30)
[2018-11-26] MEDS: ENSURE ENLIVE CHOC 237 ML CAN PO SCH ×2 (12:00→17:00)
[2018-11-26 16:00] VITALS: BP 110/60
--- NOTE | 2018-11-26 18:00 | NUR ---
TURNED AND REPOSITIONED PATIENT EVERY 2 HRS NEEDED. REFUSED WOUND CARE
[2018-11-26] MEDS: IV NS 0.9% 1,000 ML IV PRN (19:16)
--- NOTE | 2018-11-26 19:30 | NUR ---
rn initial notes: pt in bed, awake, a/o x3 romansh speaking, denies any pain or discomfort at this time. iv acces patent and flushing well, infusing with ns at 75ml/hr. sitter at bed side. condom cath and colostomy in placed. safety precautions for fall initiated, call light in reach, will continue monitoring pt.
--- NOTE | 2018-11-26 19:31 | NUR ---
RN CLOSING NOTES PATIENT IN STABLE CONDITION. ALL NEED ATTENDED AND PROVIDED. ALL DUE MEDS GIVEN ORDERED. KEPT PATIENT SAFE AND COMFORTABLE. BED IN LOW.LOCKED POSITION, SIDERAILS UP, CALL LIGHT IN REACH. ENDORSED TO NIGHT RN FOR JEANIE.
[2018-11-26 20:00] VITALS: BP 117/67
[2018-11-26] MEDS: ENOXAPARIN SODIUM 40 MG/0.4 ML DISP.SYRIN SQ SCH (20:23)
[2018-11-27] MEDS: VALPROATE 250 MG in IV D5W 100 ML IV SCH ×3 (04:01→21:13)
--- NOTE | 2018-11-27 06:41 | NUR ---
RN CLOSING NOTES: PT IN BED, AWAKE, REMAINS A/O X3, CALM AT THIS TIME, IV ACCESS REMAINS PATENT AND FLUSHING WELL, INFUSING WITH IVF ORDERED. COLOSTOMY AND CONDOM CATH REMAINS IN PLACED. SITTER AT BED SIDE. VS REMAINS STABLE, NEEDS ATTENDED. SAFETY PRECAUTIONS FOR FALL REMAINS ENGAGED, CALL LIGHT IN REACH, WILL ENDORSE TO DAY RN FOR CONTINUITY OF CARE.
--- NOTE | 2018-11-27 07:10 | NUR ---
RN OPENING NOTE RECEIVED PATIENT IN BED RESTING. A/O X2-3 SETSWANA SPEAKING, BREATHING EVEN AND UNLABORED ON RA, NO S/S OF ANY PAIN OR DISTRESS AT THIS TIME, IV ACCESS IS PATENT AND INTACT, CONDOM CATH IN PLACE, COLOSTOMY BAG IN PLACE, SITTER PRESENT AT BEDSIDE, SAFETY PRECAUTIONS IN PLACE, BED IN LOW/LOCKED POSITION, SIDERAILS UP, CALL LIGHT WITHIN REACH, WILL MONITOR PT ACCORDINGLY.
[2018-11-27 08:00] VITALS: BP 118/69
[2018-11-27] MEDS: ENSURE ENLIVE CHOC 237 ML CAN PO SCH ×2 (08:00→16:36)
[2018-11-27] MEDS: CHOLECALCIFEROL 1,000 UNIT TABLET (VIT D3) PO SCH (08:30)
[2018-11-27] MEDS: BENZTROPINE MESYLATE (1 MG) 1 MG TABLET PO SCH ×2 (08:31→16:36)
[2018-11-27] MEDS: PANTOPRAZOLE 40 MG TABLET.DR PO SCH (08:31)
[2018-11-27] MEDS: ACIDOPHILUS/BULGARICUS 1 EACH TAB.CHEW PO SCH ×2 (08:31→16:35)
[2018-11-27] MEDS: ENSURE ENLIVE 237 ML LIQUID (VANILLA) PO SCH ×2 (08:32→16:36)
[2018-11-27] MEDS: AMMONIUM LACTATE 227 GM BOTTLE TP SCH (08:32)
[2018-11-27] MEDS: HYDROGEL DRESSING 90 GM TUBE TP SCH (08:33)
[2018-11-27] MEDS: Z GUARD REMEDY 2 OZ OINT TP SCH (08:33)
--- NOTE | 2018-11-27 09:05 | NUR ---
INFORMATION SENT: FACESHEET, PROGRESS NOTES 11/26, 24 HRS REPORT, UR 11/26. INSURANCE NAME:[facility] FAX NUMBER: [phone] FAX SENT
[2018-11-27] MEDS: IV NS 0.9% 1,000 ML IV PRN (12:31)
--- NOTE | 2018-11-27 15:19 | NUR ---
wound care rendered. condom cath changed.
[2018-11-27 15:39] LABS: BASOPHILS # (AUTO) 0.1 /CMM (0.0-0.2); BASOPHILS % (AUTO) 1.5 % (0.0-2.0); EOSINOPHILS % (AUTO) 5.3 % (0.0-6.0); HEMATOCRIT 36 % (39-51); LYMPHOCYTES % (AUTO) 19.9 % (20.0-44.0); MEAN CORPUSCULAR HGB CONC 33 g/dl (31.0-36.0); MEAN CORPUSCULAR VOLUME 84 fL (80-96); MONOCYTES # (AUTO) 0.4 /CMM (0.1-1.30); MONOCYTES % (AUTO) 7.7 % (2.0-12.0); NEUTROPHILS # (AUTO) 3.4 /CMM (1.8-8.9); NEUTROPHILS % (AUTO) 65.6 % (43.0-81.0); PLATELET COUNT (AUTO) 174 /CMM (150-450); RED BLOOD CELL COUNT(AUTO) 4.31 MIL/uL (4.5-6.0); WHITE BLOOD COUNT (AUTO) 5.2 K/uL (4.3-11.0)
[2018-11-27 15:51] LABS: CALCIUM, SERUM 7.9 mg/dL (8.5-10.1); CREATININE 0.5 mg/dL (0.6-1.3); MAGNESIUM 1.8 mg/dL (1.8-2.4); PHOSPHORUS 2.9 mg/dL (2.5-4.9); POTASSIUM 3.1 mmol/L (3.5-5.1)
[2018-11-27 16:00] VITALS: BP 122/71
[2018-11-27] MEDS ORDERED: POTASSIUM CHLORIDE 20 MEQ POWDER PACKET PO ONE (18:30)
--- NOTE | 2018-11-27 19:17 | NUR ---
RN CLOSING NOTES PATIENT IN STABLE CONDITION. ALL NEED ATTENDED AND PROVIDED. ALL DUE MEDS GIVEN ORDERED. TURNED AND REPOSITIONED PATIENT EVERY 2 HRS NEEDED. KEPT PATIENT SAFE AND COMFORTABLE. BED IN LOW.LOCKED POSITION, SIDERAILS UP, CALL LIGHT IN REACH. ENDORSED TO NIGHT RN FOR JEANIE.
--- NOTE | 2018-11-27 19:25 | NUR ---
MS/RN NOTES RECEIVED PT. LYING IN BED. PT. IS AWAKE, ALERT AND ORIENTED X3. BREATHING EVEN AND UNLABORED ON ROOM AIR. NO SOB, RESPIRATORY DISTRESS OR COMPLAINTS OF PAIN NOTED AT THIS TIME. PT. WITH RIGHT UPPER ARM 22 GAUGE PERIPHERAL IV PRESENT, PATENT AND INTACT ADMINISTERING TO PT. NS @ 75 ML/HR. PT. WITH CONDOM CATHETER PRESENT, PATENT AND INTACT DRAINING CLOUDY YELLOW URINE. PT. WITH 1:1 SITTER PRESENT AT BEDSIDE. BED LOCKED AND IN LOWEST POSITION, SIDE RAILS UP X3, BED ALARM ON, CALL LIGHT WITHIN REACH, WILL CONTINUE TO MONITOR.
[2018-11-27 20:00] VITALS: BP 133/64
[2018-11-27] MEDS: ENOXAPARIN SODIUM 40 MG/0.4 ML DISP.SYRIN SQ SCH (21:14)
[2018-11-28] MEDS: VALPROATE 250 MG in IV D5W 100 ML IV SCH ×2 (05:29→12:21)
[2018-11-28] MEDS: IV NS 0.9% 1,000 ML IV PRN (05:29)
--- NOTE | 2018-11-28 06:11 | NUR ---
MS/RN NOTES PT. IS LYING IN BED RESTING. BREATHING EVEN AND UNLABORED ON ROOM AIR. NO SOB, RESPIRATORY DISTRESS OR COMPLAINTS OF PAIN NOTED AT THIS TIME. PT. WITH RIGHT UPPER ARM 22 GAUGE PERIPHERAL IV PRESENT, PATENT AND INTACT ADMINISTERING TO PT. NS @ 75 ML/HR. PT. WITH CONDOM CATHETER PRESENT, PATENT AND INTACT DRAINING CLOUDY YELLOW URINE. ALL PT. NEEDS MET. PT. OFFLOADED, TURNED AND REPOSITIONED Q2H AND NEEDED. PT. WITH 1:1 SITTER PRESENT AT BEDSIDE. BED LOCKED AND IN LOWEST POSITION, SIDE RAILS UP X3, BED ALARM ON, CALL LIGHT WITHIN REACH, WILL ENDORSE TO DAYSHIFT NURSE FOR CONTINUITY OF CARE.
--- NOTE | 2018-11-28 07:10 | NUR ---
RN OPENING NOTE RECEIVED PATIENT IN BED RESTING. A/O X2-3 ARMENIAN SPEAKING, BREATHING EVEN AND UNLABORED ON RA, SATTING 98%. NO S/S OF ANY PAIN OR DISTRESS AT THIS TIME, IV ACCESS IS PATENT AND INTACT, CONDOM CATH IN PLACE, COLOSTOMY BAG IN PLACE, SITTER PRESENT AT BEDSIDE, SAFETY PRECAUTIONS IN PLACE, BED IN LOW/LOCKED POSITION, SIDERAILS UP, CALL LIGHT WITHIN REACH, WILL MONITOR PT ACCORDINGLY.
[2018-11-28 08:00] VITALS: BP 123/69
[2018-11-28] MEDS ORDERED: ENOXAPARIN SODIUM 40 MG/0.4 ML DISP.SYRIN SQ SCH (09:00)
[2018-11-28] MEDS: BENZTROPINE MESYLATE (1 MG) 1 MG TABLET PO SCH (09:29)
[2018-11-28] MEDS: CHOLECALCIFEROL 1,000 UNIT TABLET (VIT D3) PO SCH (09:29)
[2018-11-28] MEDS: ACIDOPHILUS/BULGARICUS 1 EACH TAB.CHEW PO SCH (09:30)
[2018-11-28] MEDS: ENSURE ENLIVE 237 ML LIQUID (VANILLA) PO SCH (09:30)
[2018-11-28] MEDS: HYDROGEL DRESSING 90 GM TUBE TP SCH (09:31)
[2018-11-28] MEDS: AMMONIUM LACTATE 227 GM BOTTLE TP SCH (09:31)
[2018-11-28] MEDS: Z GUARD REMEDY 2 OZ OINT TP SCH (09:31)
[2018-11-28] MEDS: PANTOPRAZOLE 40 MG TABLET.DR PO SCH (09:34)
[2018-11-28] MEDS: ENSURE ENLIVE CHOC 237 ML CAN PO SCH (09:34)
[2018-11-28 16:00] VITALS: BP 110/59
--- NOTE | 2018-11-28 16:00 | NUR ---
WOUND CARE RENDERED PHOTOS TAKEN
--- NOTE | 2018-11-28 17:50 | NUR ---
DISCHARGED PATIENT IN STABLE CONDITION PICKED UP BY TERMINAL CLERK. [facility], REPORT GIVEN TO KAN SORIA, DISCHARGED INSTRUCTIONS GIVEN, VERBALIZED UNDERSTANDING. DC INSTRUCTIONS ALSO GIVEN TO PATIENT. DC PAPERWORK GIVEN TO TERMINAL CLERK. IV ACCESS REMOVED, APPLIED PRESSURE, NO BLEEDING, NO COMPLICATIONS. REMOVED NAMEBAND. SKIN PHOTOS TAKEN.
== END 2018-11-28 17:50 | DRG 463 ==
LOC: ER 17:20 → MED 21:00 → MEDSG2 11-24 17:56 → MED 11-26 05:59
PROVIDERS: ADMIT Nurse Practitioner Acute Care; ATTEND Internal Medicine
DX: N39.0 Urinary tract infection, site not specified (principal); L89.150 Pressure ulcer of sacral region, unstageable; L89.319 Pressure ulcer of right buttock, unspecified stage; R53.2 Functional quadriplegia; F33.3 Major depressive disorder, recurrent, severe with psychotic symptoms; D68.59 Other primary thrombophilia; E44.1 Mild protein-calorie malnutrition; R62.7 Adult failure to thrive; K21.9 Gastro-esophageal reflux disease without esophagitis; Z91.14 Patient's other noncompliance with medication regimen; Z91.19 Patient's noncompliance with other medical treatment and regimen; E78.5 Hyperlipidemia, unspecified; K46.9 Unspecified abdominal hernia without obstruction or gangrene; Z79.899 Other long term (current) drug therapy; I10 Essential (primary) hypertension; Z74.09 Other reduced mobility; B96.89 Other specified bacterial agents as the cause of diseases classified elsewhere; G31.84 Mild cognitive impairment of uncertain or unknown etiology; M62.838 Other muscle spasm; E87.6 Hypokalemia; Z86.73 Personal history of transient ischemic attack (TIA), and cerebral infarction without residual deficits
CPT/HCPCS: 36415; 70450-TC; 71045-TC; 80048-TC; 80053-TC; 80061-TC; 80076-TC; 80305; 81000-TC; 83735-TC; 84100-TC; 85025-TC; 87081-TC; 87086-TC; A4349; A6248; A6253; A6403; G0378; G0480; J0696; J1650; J2270; J3490; J7030; J7060